=== PATIENT | male | born 1995 | race Caucasian/White ===

== ENCOUNTER 2016-11-13 18:45 | Emergency (ER) | payer OTHER ==
[2016-11-13 18:50] VITALS: O2SAT 96
--- NOTE | 2016-11-13 19:05 | EDPHY ---
H & P Time Seen by Provider: 11/13/16 18:52 HPI/ROS: CHIEF COMPLAINT: Infection right leg HISTORY OF PRESENT ILLNESS: 21-year-old male presents to the emergency department with concerns about infection to his right lower leg. Patient was in [place] 2 weeks ago and thinks that he may have been bit by an insect or spider of some kind. He states that he woke up with a small red wound to the right lower leg. He states that he picked at it and opened up and drained some pus. He states since that time he has had more redness and warmth. He believes his tetanus shot is current. Denies any other injury or trauma. ROS: Denies lymphangitis, pain in his right groin, fevers, chills Past Medical/Surgical History: Negative Social History: [employer] student Smoking Status: Never smoked Physical Exam: On examination the patient has redness and warmth noted to the right anterior lateral aspect of his lower leg. It is tender to palpate. There is a central excoriated wound that has a scab associated with it. The scab was removed and purulent drainage was expressed. Wound culture was obtained. No signs of compartment syndrome. No palpable bony tenderness. Normal gait. Full range of motion of his right lower extremity. No lymphangitis. No pain in his right groin with palpation. Constitutional: Initial Vital Signs Temperature (C) 36.7 C 11/13/16 18:47 Heart Rate 71 11/13/16 18:47 Respiratory Rate 16 11/13/16 18:47 Blood Pressure 133/72 H 11/13/16 18:47 O2 Sat (%) 96 11/13/16 18:47 O2 Delivery Mode Room Air Allergies/Adverse Reactions: No Known Allergies Allergy (Unverified 11/13/16 18:50) Home Medications: Medication Instructions Recorded Cephalexin [Keflex] 500 mg PO QID #28 cap 11/13/16 Sulfamethox/Tmp 800/160 mg 1 tab PO BID #14 tab 11/13/16 [Bactrim DS] MDM/Departure - MDM ED Course/Re-evaluation: 21-year-old male presents to the emergency department with an infection to his right lower leg. Clinically I think this patient has cellulitis. He has associated abscess which could be from him picking at the wound as well. The wound was opened and purulent drainage was expressed. Wound culture was obtained. There is no signs of compartment syndrome. I do not see any lymphangitis. He is afebrile. Has no lymphadenopathy. He I do not think IV antibiotics are indicated. The patient will be treated with oral Keflex and Bactrim. He was also encouraged to use warm compresses. He will call for the results of his wound culture in 48 hours. - Depart Disposition: Home, Routine, Self-Care Clinical Impression: Cellulitis of right leg, Abscess of right leg Condition: Good Instructions: Cellulitis (ED), Abscess (ED), Warm Compress or Soak (ED) Additional Instructions: Keflex and Bactrim as directed for 1 week. Apply warm compresses or soak your leg in warm water for 15-20 minutes every 2-3 hours especially today and tomorrow. Apply antibiotic ointment to the wound after soaking to help keep the wound open and draining. Ibuprofen 600 mg every 8 hours as needed for pain. Activity as tolerated. Return if you developed fever, red streaking up your leg, pain in her right groin, or if you feel worse in any way. Call [phone] for the results of your wound culture in 48 hours. Prescriptions: Cephalexin [Keflex] 500 mg PO QID #28 cap Sulfamethox/Tmp 800/160 mg [Bactrim DS] 1 tab PO BID #14 tab Referrals: POONAM OCASIO [Other] - As per Instructions
[2016-11-13 19:19] VITALS: BP 120/79; PULSE 80; RESP 14; TEMP 98.4
== END 2016-11-13 19:19 | disposition home or self-care (01) ==
DX: L02.415 Cutaneous abscess of right lower limb (principal); L03.115 Cellulitis of right lower limb

== ENCOUNTER → 2018-03-26 | Outpatient (CLI) | payer OTHER | LOC: FCPNEURO 21:00 | PROVIDERS: ATTEND Psychiatry & Neurology Sleep Medicine | DX: G47.33 Obstructive sleep apnea (adult) (pediatric) (principal) ==